=== PATIENT | male | born 1950 | race Caucasian/White ===

== ENCOUNTER 2016-10-01 20:20 | Emergency (ER) | payer SELFPAY ==
--- NOTE | 2016-10-01 20:26 | ED Physician Chart ---
Chief Complaint/HPI - Patient Information Date Seen:: 10/01/16 Time Seen:: 20:22 Chief Complaint:: knee pain History of Present Illness:: 66-year-old male, history of knee replacement, complains of acute, constant, aching, 9 out of 10, severe, worse with walking, left knee pain 2 days after he accidentally hit his knee on the edge of a door. Has associated swelling of the left knee. Has used Percocet in the past for knee pain which works well. Historian:: Patient Review:: Nurse's Note Reviewed Review of Systems - Review of Systems Other: Complete system review otherwise unremarkable except as noted in HPI. Past Medical History - Past Medical History Past Medical History: HTN Family History: None Social History: Non Smoker, No Alcohol, No Drug Use Surgical History: other (left knee arthroplasty) Psychiatricy History: None Medication: Reviewed Family Medical History - Family Member Mother History Unknown: Yes Physical Exam - Physical Examination Other:: INITIAL VITAL SIGNS: Reviewed by me GENERAL: Alert and interactive. No acute distress HEAD: Head is normocephalic and atraumatic EYES: EOMI. . No scleral icterus. No conjunctival injection ENT: Moist mucous membranes. NECK: Supple. No masses. Full range of motion RESPIRATORY: No tachypnea. Clear breath sounds bilaterally. No wheezing, rales, or rhonchi CV: Regular rate and rhythm. No murmurs, rubs, or gallops ABDOMEN: Soft, non-distended, non-tender. No guarding. No rebound. No masses. EXTREMITIES: Left knee is slightly edematous and there is somewhat limited range of motion due to pain. SKIN: Warm and dry. No obvious rashes. NEUROLOGIC: Alert and oriented. Face is symmetric. Speech is normal. Moves all extremities equally. Motor and sensory distally intact. Labs/Radiology/EKG Results - Radiology Results Results: X-ray left knee 2 views was interpreted independently and contemporaneously by Joleen Ocampo MD: old fracture of distal femur noted No acute fractures No acute dislocations No soft tissue foreign bodies Overall impression: Normal X-ray ED Septic Shock - . Is Septic Shock (SBP<90, OR Lactate>4 mmol\L) present?: No Reassessment (Disposition) - Reassessment Reassessment:: Patient has left knee contusion. X-ray unremarkable for any fractures or dislodgment of the orthopedic hardware. Provided Percocet here in the ER. Had pain relief. Gave prescription for oral analgesics. Recommended follow-up with PCP 1-2 days. Gave return to ER precautions. Patient understands and agrees the plan. Reassessment Condition:: Improved - Diagnosis Diagnosis:: Left knee contusion, acute - Aftercare/Follow up Instructions Aftercare/Follow-Up Instructions:: Counseled pt regarding lab results/diagnosis & need follow up, Refer to Discharge Instructions Medication Prescribed:: Percocet - Patient Disposition Discharge/Transfer:: Home Time:: 21:19 Condition at Disposition:: Improved ED Discharge Plan - Patient Disposition Admit/Discharge/Transfer: PT DISCHARGED HOME Condition at Disposition: Improved Instructions: Contusion
[2016-10-01] MEDS ORDERED: APAP/Oxycodone 5/325mg Oral Tab PO STA (20:27)
[2016-10-01] MEDS ORDERED: APAP/Oxycodone 5/325mg Oral Tab ONE (21:31)
--- NOTE | 2016-10-02 09:24 | Diagnostic Imaging Report ---
History: Knee pain Findings: There is intramedullary krissy. There is an unhealed fracture site distal femoral metaphysis. Impression: Unhealed fracture through the distal femoral metaphysis. No evidence of displacement of orthopedic instrumentation.
== END 2016-10-01 21:50 | disposition home or self-care (01) ==
LOC: ER 20:20
DX: S80.02XA Contusion of left knee, initial encounter (principal); I10 Essential (primary) hypertension; Z96.652 Presence of left artificial knee joint; Z88.8 Allergy status to other drugs, medicaments and biological substances; W22.8XXA Striking against or struck by other objects, initial encounter; Y93.89 Activity, other specified; Y92.89 Other specified places as the place of occurrence of the external cause; Y99.8 Other external cause status
CPT/HCPCS: 73560-TC-LT; Z7502